=== PATIENT | female | born 2005 | race Caucasian/White ===

== ENCOUNTER 2025-01-30 13:20 | Emergency (ER) | payer MEDICAID ==
[~2025-01-30] VITALS: Ht 177.8 cm; Wt 93.2 kg
[~2025-01-30 13:20] MED LIST: IBUP100T34 PO; PEG1POWD PO
[2025-01-30 13:50] VITALS: BP 111/82; PULSE 96; TEMP 97.2; O2SAT 97
--- NOTE | 2025-01-30 17:21 | Physician Documentation ---
History of Present Illness ~ Chief Complaint: Bite-animal Stated Complaint: DOG BITE Time Seen by MD: 17:02 Primary Medical Doctor: SHADEK Source: patient Mode of Arrival: POV Exam Limitations: no limitations HPI Patient presents for a dog bite to her right thumb. Dog is known to her in his up-to-date on vaccinations. Complaining of significant pain secondary to the bite. Bleeding controlled. Unknown last tetanus. Tetanus within 5 years?: No (UNK) Medication Reconciliation Allergies: Coded Allergies: No Known Allergies (Unverified , 01/30/25) Scheduled Amox Tr/Potassium Clavulanate 875/125 MG (Augmentin 875/125 MG), 1 TAB PO Q12H Ibuprofen (Motrin), 4 TAB.CHEW PO q8 Peg 3350/Na Sulf,Bicarb,Cl/KCl (Golytely Packet), 2 SCOOP PO UD Past Medical History Past Medical History: No Pertinent History Past Surgical History: no surgical history Alcohol Use: None Drug Use: none Lives with: Family Lives In: Home Occupation: student Review of Systems ROS Review of systems negative except documented in HPI Physical Exam Vital Signs: RN Vital Signs have been reviewed: Yes, Temperature: 97.2, Heart Rate: 96, Respiratory Rate: 18, BP: 111/82, Pulse Oximetry: 97, Weight: 93.200 Oxygen Flow Rate: 0 Pulse Oximetry Reflects: adequate oxygenation Physical Exam General: Awake, alert, oriented. Tearful. Extremities: The right thumb has small puncture wound/abrasion to the dorsal and palmar aspect. No active bleeding. There is a laceration to the tip of her thumb with no bleeding. Wound is well approximated. No obvious involvement of the nail bed. Exam limited by pain. Procedures Procedures Wound was anesthetized with 2 mL of 1% lidocaine without epinephrine for wound care. No wound closure was required Progress Results/Orders Results/Orders Orders - ERIC EMERY NP Hand, Complete (3vw Min) (01/30/25 17:59) Completed Orders - ERIC EMERY NP Tetanus/Pertuss/Diph Acell/Pf (Boostrix (01/30/25 17:20) Bacitracin Ointment (Bacitracin Ointment (01/30/25 17:20) Lidocaine 1% 30ml Vial (Xylocaine 1% Via (01/30/25 17:20) Amox Tr/Potassium Clavulanate (Augmentin (01/30/25 17:20) Hydrocodone/Apap 5/325mg Tab ([place] 5/32 (01/30/25 17:20) Hand, Complete (3vw Min) (01/30/25 17:59) Medications Received in ER Medications (Trade) Dose Ordered Sig/Haider Route PRN Reason Start Time Stop Time Status Last Admin Dose Admin (Boostrix vaccine syringe) 0.5 ml ONCE ONCE IMVAC 01/30/25 17:20 01/30/25 17:21 DC 01/30/25 17:36 0.5 ML (bacitracin ointment) 1 applic ONCE ONCE TP 01/30/25 17:20 01/30/25 17:21 DC 01/30/25 17:34 1 APPLIC (Augmentin 875-125mg tablet) 1 tab ONCE ONCE PO 01/30/25 17:20 01/30/25 17:21 DC 01/30/25 17:32 1 TAB ([place] 5/325mg tablet) 1 tab ONCE ONCE PO 01/30/25 17:20 01/30/25 17:21 DC 01/30/25 17:34 1 TAB Vital Signs 01/30/25 01/30/25 13:50 17:34 Temp 97.2 Pulse 96 Resp 18 16 B/P (MAP) 111/82 Pulse Ox 97 O2 Flow Rate 0 EKG/XRAY/CT/US/VASC/MRI Bone/Soft Tissue X-Ray (Ext.) : Interpreted By: both Views: 3 VIEW Indication: trauma Location: hand Impression: normal, soft tissue swelling Additional Comment [address], [facility] [address] DIAGNOSTIC RADIOLOGY Patient: MARJ FUNK Medical Record: [id number] [facility] : 2005, Age: 19 Sex: Female Location: ER Patient Status: REG ER Service Date/Time: 01/30/251758 Ordering Physician: ERIC EMERY NP Exam: HAND, COMPLETE (3VW MIN) EXAM: DI HAND, COMPLETE (3VW MIN) CLINICAL INDICATION: dog bite TECHNIQUE: DI HAND, COMPLETE (3VW MIN) Comparison: None FINDINGS/IMPRESSION: There is no evidence of acute fracture or dislocation. The visualized joint space is well maintained. The alignment is anatomical. There is no radiopaque foreign body. Electronically Signed by:MANA PEREZ MD Date & Time: 01/30/251847 Dictated by: MANA PEREZ MD Dictation date and time: 01/30/251847 Primary Care Provider: NO PRIMARY CARE PROVIDER cc: ERIC EMERY [employer] ~ Medical Decision Making Additional information obtaine: N/A Findings Patient presents after being bit by her personal doc on her left hand. The dog is up-to-date on vaccines and there is no clinical suspicion for rabies. She was breaking up a dog fight at the time. She presents with a puncture wound to her thumb as well as a small laceration to the tip of her thumb. There is no evidence of foreign body. There is significant pain. Therefore, the area was numbed with 1% lidocaine without epinephrine for anesthesia for cleaning. The wound was cleansed. X-ray was performed to rule out fracture foreign body. This was reviewed by myself and radiology which was without fracture, d islocation or foreign body. Wound care was given. Warning signs and symptoms were reviewed. She will be given prophylactic antibiotics. Differential Dx:Considerations: Include: Cellulitis, Fracture, Insect envenomation, Laceration, Neurovascular injury, Punture wound, Retained foreign body Departure Time of Disposition: 18:38 Disposition: HOME / SELF CARE / HOMELESS Impression: Primary Impression: Dog bite Qualified Codes: W54.0XXA - Bitten by dog, initial encounter Condition: Stable Discharge Instructions: Animal Bite, Adult Additional Instructions: Take antibiotics as prescribed prevent infection related to the dog bite. Keep your wound clean and dry. Recommend not submerging in water until healed. You may shower. Referrals: NO PRIMARY CARE PROVIDER (PCP) Prescriptions Amox Tr/Potassium Clavulanate 875/125 MG (Augmentin 875/125 MG) 875 Mg-125 Mg Tablet 1 TAB PO Q12H for 10 Days, #20 TAB Prov: ERIC EMERY NP 01/30/25 Education Educated: Patient Educated regarding: diagnosis, treatment, need for follow up Signature Scribe Signature: No scribe Attestation: The note accurately reflects work and decisions made by me.Eric Emery - MARINO 01/30/25 20:17 This note was created with the assistance of voice recognition software whereby errors in grammar, syntax, and/or spelling may have occurred despite active proofreading efforts by the author. Please do not hesitate to contact the provider for clarification or for questions regarding the content of this document. ERIC EMERY NP Jan 30, 2025 17:21
[2025-01-30] MEDS: amox tr/potassium clavulanate 875/125mg TAB PO ONE (17:32)
[2025-01-30 17:34] VITALS: RESP 16
[2025-01-30] MEDS: HYDROcodone/acetaminophen 5mg/325mg tablet PO ONE (17:34)
[2025-01-30] MEDS: bacitracin 15gm ointment TP ONE (17:34)
[2025-01-30] MEDS: TETanus/Pertussis (Acell)/Diphther VAC/PF (Tdap-Adult) 0.5ml syringe IMVAC ONE (17:36)
[2025-01-30] MEDS: LIDOcaine 1% 30ml preserv. free vial IJ ONE (17:37)
[2025-01-30] MEDS ORDERED: AMOX-580 PO (18:39)
--- NOTE | 2025-01-30 18:50 | RADIOLOGY REPORT ---
EXAM: DI HAND, COMPLETE (3VW MIN) CLINICAL INDICATION: dog bite TECHNIQUE: DI HAND, COMPLETE (3VW MIN) Comparison: None FINDINGS/IMPRESSION: There is no evidence of acute fracture or dislocation. The visualized joint space is well maintained. The alignment is anatomical. There is no radiopaque foreign body.
== END 2025-01-30 19:08 | disposition home or self-care (01) ==
LOC: ER 13:20
DX: S61.031A Puncture wound without foreign body of right thumb without damage to nail, initial encounter (principal); W54.0XXA Bitten by dog, initial encounter; Y93.89 Activity, other specified; Y92.89 Other specified places as the place of occurrence of the external cause; Y99.8 Other external cause status
CPT/HCPCS: 73130; 90471; 90715; 99283; 99284; A6258; A6449